=== PATIENT | male | born 1960 | race Caucasian/White ===

== ENCOUNTER 2017-05-21 06:29 | Emergency (ER) | payer MEDICAID ==
[2017-05-21 07:01] LABS: Basophils % (Auto) 1.3 % (0.0-1.8); Eosinophils % (Auto) 0.2 % (0.0-4.3); Hematocrit 45.1 % (35.5-45.6); Hemoglobin 15.4 gm/dl (11.8-15.2); Mean Corpuscular HGB Conc 34 % (32-34); Mean Corpuscular Hemoglobin 31 pg (28-32); Mean Corpuscular Volume 91 fl (84-94); Platelet Count 247 K/mm3 (140-440); Red Blood Count 4.98 M/mm3 (3.65-5.03); Red Cell Distribution Width 12.7 % (13.2-15.2); White Blood Count 10.9 K/mm3 (4.5-11.0)
[2017-05-21 07:19] LABS: Anion Gap 24 mmol/L; Blood Urea Nitrogen 16 mg/dL (9-20); Calcium 9.1 mg/dL (8.4-10.2); Carbon Dioxide 22 mmol/L (22-30); Chloride 97.7 mmol/L (98-107); Glucose 133 mg/dL (75-100); Potassium 3.5 mmol/L (3.6-5.0); Sodium 140 mmol/L (137-145)
[2017-05-21 10:05] LABS: Urine Drugs of Abuse Note Disclamer
[2017-05-21 10:38] LABS: Bilirubin,Urine NEG (Negative); Blood,Urine NEG (Negative); Ketones,Urine NEG (Negative); Leukocyte Esterase,Urine TR (Negative); Mucus,Urine 3+ /HPF; Nitrite,Urine NEG (Negative); Urobilinogen,Urine < 2.0 mg/dL (<2.0)
[2017-05-21 11:59] VITALS: BP 177/105
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
== END 2017-05-21 17:00 | disposition left against medical advice (07) ==
LOC: ED 06:29
DX: F29 Unspecified psychosis not due to a substance or known physiological condition (principal); R82.99 Other abnormal findings in urine
CPT/HCPCS: 36415; 80048; 80307; 81001; 85025; 87086; 99283; G0480; 80320